=== PATIENT | female | born 2000 | race Caucasian/White ===

== ENCOUNTER 2019-10-12 09:12 | Emergency (ER) | payer MEDICAID ==
[2019-10-12] MEDS ORDERED: METHYLPREDNISOLONE INJ 125 MG/2 ML SDV IV ONE (09:28)
[2019-10-12] MEDS ORDERED: IPRATROPIUM/ALBUTEROL 0.5-2.5 MG/3 ML AMPUL NEB ONE (09:28)
--- NOTE | 2019-10-12 09:30 | ER Document Report ---
ED Medical Screen (RME) - General Chief Complaint: Cough Stated Complaint: SHORTNESS OF BREATH/COUGH/CONGESTION Time Seen by Provider: 10/12/19 09:22 Notes: Patient is a 19-year-old female who presents to the emergency department with a chief complaint of a cough. Patient states that she has had a cough for over a month. Patient has cystic fibrosis. Has complaints of body aches. Patient states that she normally does not get fevers. She has a history of pneumonia. 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 Exam: Diminished breath sounds in right lower lobe. I have greeted and performed a rapid initial assessment of this patient. A comprehensive ED assessment and evaluation of the patient, analysis of test results and completion of medical decision making process will be conducted by an additional ED providers. TRAVEL OUTSIDE OF THE [place] IN LAST 30 DAYS: No - Related Data Allergies/Adverse Reactions: acetaminophen [From Tylenol] Allergy (Verified 10/12/19 09:19) codeine Allergy (Verified 10/12/19 09:19) vancomycin Allergy (Verified 10/12/19 09:19) Past Medical History - Social History Frequency of alcohol use: None Drug Abuse: None Physical Exam - Vital signs Vitals: Temp Pulse Resp BP Pulse Ox 98.1 F 102 H 20 136/75 H 97 10/12/19 09:16 10/12/19 09:16 10/12/19 09:16 10/12/19 09:16 10/12/19 09:16 Course - Vital Signs Vital signs: Temp Pulse Resp BP Pulse Ox 98.1 F 102 H 20 136/75 H 97 10/12/19 09:16 10/12/19 09:16 10/12/19 09:16 10/12/19 09:16 10/12/19 09:16
--- NOTE | 2019-10-12 09:52 | RADIOLOGY REPORT (SQ) ---
EXAM DESCRIPTION: CHEST 2 VIEWS COMPLETED DATE/TIME: 10/12/2019 9:36 am REASON FOR STUDY: cough x1 month; pt has cystic fibrosis COMPARISON: None. EXAM PARAMETERS: NUMBER OF VIEWS: two views TECHNIQUE: Digital Frontal and Lateral radiographic views of the chest acquired. RADIATION DOSE: NA LIMITATIONS: none FINDINGS: LUNGS AND PLEURA: Upper lobe predominant bronchiectasis consistent with cystic fibrosis. There is no consolidation, pleural effusion or pneumothorax. MEDIASTINUM AND HILAR STRUCTURES: No mediastinal or hilar contour abnormality. HEART AND VASCULAR STRUCTURES: The cardiomediastinal silhouette and pulmonary vasculature are within normal limits. BONES: No acute findings. HARDWARE: None in the chest. OTHER: No other finding. IMPRESSION: Upper lobe predominant bronchiectasis consistent with history of cystic fibrosis. There is no superimposed c acute cardiopulmonary process. TECHNICAL DOCUMENTATION: JOB ID: [id number] [employer]- All Rights Reserved Reading location - IP/workstation name: [email or web address]
--- NOTE | 2019-10-12 09:55 | ER Document Report ---
ED Respiratory Problem - General Chief Complaint: Cough Stated Complaint: SHORTNESS OF BREATH/COUGH/CONGESTION Time Seen by Provider: 10/12/19 09:22 Information source: Patient TRAVEL OUTSIDE OF THE [place] IN LAST 30 DAYS: No - HPI Patient complains to provider of: Short of breath. No: Asthma, Chest pain, CHF, COPD, Cough, Hurts to breath, Other Onset: This morning Duration: Continuous. No: Better, Gone now, Intermittent episodes, Worse/persistent Initiating Event: No: Allergy, Exertion, Exposure to chemicals, Exposure to dust, Exposure to fumes, Exposure to mold, Exposure to smoke, Out of meds, Spor ts/exercise, URI, Other Quality of pain: denies: No pain, Achy, Burning, Cramping, Dull, Fullness, Pressure, Sharp, Stabbing, Throbbing, Other Severity: Moderate Pain Level: 2 Context: denies: DVT, Factor V Leiden, Hx asthma, Hx CHF, Hx COPD, Malignancy, , Recent cardiac event, Recent foreign travel, Recent long distance trvl, Recent immobilization, Recent surgery, Smoker, Other Short of Breath: Moderate Chest pain/discomfort: denies: Center, Constant, Heaviness, Intermittent, Left, Pain, Radiates to arm, Radiates to back, Radiates to jaw, Right, Tightness, Worse with deep breaths Cough: Nonproductive. denies: Productive, Stridor, Suspect aspiration At home treatment: denies: Bronchodilators, CPAP, Diuretics, Inhaled steroids, Oral steroids, Oxygen, Singulair, Theophylline Associated symptoms: denies: None, Ankle/leg swelling, Allergy/hay fever, Anxiety, Bloody cough, Chest pain/discomfort, Chills, Congestion, Cough, Dental decay, Difficulty breathing, Earache, Extertional dyspnea, Facial pain, Fever, Headache, Heart racing, Hoarseness, Hurts to breathe, Hyperventilation, Jaw pain, Leg/calf/joint pain, Muscle spasms, Orthopnea, PND, Runny nose, Sinus pain/pressure, Short of breath, Sore Throat, Sweaty, Tingling face, Tingling hands, Unable to swallow, Toothache, Wheezing, Other - Related Data Allergies/Adverse Reactions: acetaminophen [From Tylenol] Allergy (Verified 10/12/19 09:19) codeine Allergy (Verified 10/12/19 09:19) vancomycin Allergy (Verified 10/12/19 09:19) Past Medical History - Social History Smoking Status: Never Smoker Frequency of alcohol use: None Drug Abuse: None Family History: None Patient has suicidal ideation: No Patient has homicidal ideation: No Pulmonary Medical History: Reports: Other - History of cystic fibrosis. Psychiatric Medical History: Reports: None Review of Systems - Review of Systems Constitutional: denies: No symptoms reported, See HPI, Chills, Diaphoresis, Fever, Malaise, Weakness, Other, Weight gain, Weight loss, Recent illness Cardiovascular: denies: No symptoms reported, See HPI, Chest pain, Palpitations, Heart racing, Orthopnea, Dyspnea, Syncope, Dizziness, Lightheaded, Edema, Other, Paroxysmal Nocturnal Dysp Respiratory: Wheezing. denies: No symptoms reported, See HPI, Cough, Hurts to breathe, Hemoptysis, Short of breath, Sputum, Stridor, Other Gastrointestinal: denies: No symptoms reported, See HPI, Abdomen distended, Abdominal pain, Diarrhea, Nausea, Vomiting, Constipation, Blood streaked bowels, Poor appetite, Poor fluid intake, Blood in vomit, Black stools, Rectal bleeding, Last bowel movement, Fecal incontinence, Other -: Yes All other systems reviewed and negative Physical Exam - Vital signs Vitals: Temp Pulse Resp BP Pulse Ox 98.1 F 102 H 20 136/75 H 97 10/12/19 09:16 10/12/19 09:16 10/12/19 09:16 10/12/19 09:16 10/12/19 09:16 Notes: PHYSICAL EXAMINATION: GENERAL: Well-appearing, well-nourished and in no acute distress. HEAD: Atraumatic, normocephalic. EYES: Pupils equal round and reactive to light, extraocular movements intact, sclera anicteric, conjunctiva are normal. ENT: nares patent, oropharynx clear without exudates. Moist mucous membranes. NECK: Normal range of motion, supple without lymphadenopathy LUNGS: Wheezes heard bilaterally in all mallory. There is also some crackles in all mallory the goal of chronic lung disease. Mild respiratory distress HEART: Regular rate and rhythm without murmurs ABDOMEN: Soft, nontender, normoactive bowel sounds. No guarding, no rebound. No masses appreciated. EXTREMITIES: Normal range of motion, no pitting or edema. No cyanosis. NEUROLOGICAL: No focal neurological deficits. Moves all extremities spontaneousl y and on command. PSYCH: Normal mood, normal affect. SKIN: Warm, Dry, normal turgor, no rashes or lesions noted. Course - Vital Signs Vital signs: Temp Pulse Resp BP Pulse Ox 98.1 F 102 H 22 H 136/90 H 96 10/12/19 09:16 10/12/19 09:16 10/12/19 10:00 10/12/19 09:38 10/12/19 10:00 - Laboratory Result Diagrams: 10/12/19 10:00 10/12/19 10:00 Laboratory results interpreted by me: 10/12/19 10/12/19 10:00 10:00 WBC 14.6 H RDW 14.4 H Absolute Neuts (auto) 10.9 H Alkaline Phosphatase 136 H - Diagnostic Test Radiology reviewed: Image reviewed, Reports reviewed - Transfer of Care Notes: 10/12/19 10:45 No patient reexam no wheezes still has crackles typical of interstitial lung disease. She feels back to normal we are able to walk her with a O2 sat of 97% afterwards and no wheezes on re-auscultation of the chest. We will send her home with some prednisone she has enough albuterol for her nebulizer at home Discharge - Discharge Clinical Impression: Cystic fibrosis Asthma attack Qualifiers: Asthma severity: mild Asthma persistence: unspecified Qualified Code(s): J45.901 - Unspecified asthma with (acute) exacerbation Condition: Stable Disposition: HOME, SELF-CARE Instructions: Asthma ([facility]) Additional Instructions: Return if worse the steroids and use your nebulizer as needed Prescriptions: Prednisone [Deltasone 20 mg Tablet] 2 tab PO DAILY 5 Days #10 tablet
[2019-10-12 10:21] LABS: ABSOLUTE BASOPHILS # (AUTO) 0.1 10^3/uL (0.0-0.2); ABSOLUTE EOSINOPHILS # (AUTO) 0.3 10^3/uL (0.0-0.6); ABSOLUTE LYMPHOCYTES (AUTO) 2.6 10^3/uL (0.5-4.7); ABSOLUTE MONOCYTES (AUTO) 0.8 10^3/uL (0.1-1.4); ABSOLUTE NEUT (AUTO) 10.9 10^3/uL (1.7-8.2); BASOPHILS % (AUTO) 0.5 % (0-2); HEMATOCRIT 45.5 % (36.0-47.0); LYMPHOCYTES % (AUTO) 17.9 % (13-45); MEAN CORPUSCULAR HEMOGLOBIN 29.2 pg (27.0-33.4); MEAN CORPUSCULAR VOLUME 89 fl (80-97); MONOCYTES % (AUTO) 5.2 % (3-13); PLATELET COUNT 318 10^3/uL (150-450); RED BLOOD COUNT 5.14 10^6/uL (3.72-5.28); RED CELL DISTRIBUTION WIDTH 14.4 % (11.5-14.0); SEGMENTED NEUTROPHILS % (AUTO) 74.4 % (42-78); TOTAL CELLS COUNTED % (AUTO) 100 %; WHITE BLOOD COUNT 14.6 10^3/uL (4.0-10.5)
[2019-10-12 10:39] LABS: ALBUMIN 4.2 g/dL (3.5-5.0); ALKALINE PHOSPHATASE 136 U/L (38-126); ANION GAP 10 (5-19); ASPARTATE AMINO TRANSFERASE 24 U/L (14-36); BILIRUBIN,DIRECT 0.1 mg/dL (0.0-0.4); BILIRUBIN,TOTAL 0.6 mg/dL (0.2-1.3); BLOOD UREA NITROGEN 11 mg/dL (7-20); CALCIUM 9.5 mg/dL (8.4-10.2); CARBON DIOXIDE 24 mmol/L (22-30); CHLORIDE 106 mmol/L (98-107); GLUCOSE 75 mg/dL (75-110); POTASSIUM 4.5 mmol/L (3.6-5.0); TOTAL PROTEIN 7.6 g/dL (6.3-8.2)
[2019-10-12 11:00] VITALS: BP 123/80
== END 2019-10-12 11:00 | disposition home or self-care (01) ==
LOC: ER 09:12
DX: J45.901 Unspecified asthma with (acute) exacerbation (principal); Z79.899 Other long term (current) drug therapy; E84.9 Cystic fibrosis, unspecified; R06.02 Shortness of breath; R06.03 Acute respiratory distress; Z88.8 Allergy status to other drugs, medicaments and biological substances; Z88.5 Allergy status to narcotic agent; Z88.1 Allergy status to other antibiotic agents
CPT/HCPCS: 36415; 85025; 80053; 71046; J2930; J7620; 94640; 96374; 99283